=== PATIENT | male | born 1985 | race Caucasian/White ===

== ENCOUNTER 2019-05-22 21:13 | Emergency (ER) | payer OTHER ==
[~2019-05-22] VITALS: Ht 175.3 cm; Wt 74.8 kg
[2019-05-22 21:50] LABS: INFLUENZA A ANTIGEN Negative (Negative); INFLUENZA B ANTIGEN Negative (Negative)
[2019-05-22] MEDS ORDERED: DOXYCYCLINE 10100 MG PO (22:03)
[2019-05-22] MEDS ORDERED: PROAIR HFA8.5 GM INH (22:03)
[2019-05-22] MEDS ORDERED: PROMETH-CODEIN 65 ML PO (22:03)
[2019-05-22 22:58] VITALS: BP 118/69
== END 2019-05-22 22:59 | disposition home or self-care (01) ==
LOC: M.ERS 21:13
PROVIDERS: Nurse Practitioner Family
DX: J06.9 Acute upper respiratory infection, unspecified (principal); Z86.19 Personal history of other infectious and parasitic diseases